=== PATIENT | male | born 1995 | race Caucasian/White ===

== ENCOUNTER 2016-10-18 17:42 | Emergency (ER) | payer OTHER, SELFPAY ==
[2016-10-18] MEDS ORDERED: Lopressor 25MG Tab PO ONE (17:53)
[2016-10-18] MEDS ORDERED: Lopressor 25MG Tab ONE (17:59)
[2016-10-18] MEDS ORDERED: Sodium Chloride 0.9% 1000 ML 1,000 ML ONE (17:59)
[2016-10-18] MEDS ORDERED: Sodium Chloride 0.9% 1000 ML 1,000 ML IV SCH (18:00)
--- NOTE | 2016-10-18 18:00 | ERPHSYRPT ---
- History of Present Illness Time Seen by Provider: 10/18/16 17:50 Historian: patient Exam Limitations: no limitations Patient Subjective Stated Complaint: heart palpitations Triage Nursing Assessment: crystal meth yesterday. went [place] last [place] and just left [place] again. walked out ama both times. states feels like his heart is beating out of his chest. c/o nonradiating chest pain. slight sob. denies n/ v. skin warm and dry. Physician History: patient presents with CP and palpatations secondary to crystal meth IV yesterday ; he has been seen at [facility] ED for this and signed out AMA ; was given ativan and helps until wears off; not suicidal; no ETOH or other drugs. no other complaints or illnesses Timing/Duration: today, yesterday (onset), intermittent, sudden Activities at Onset: other (iv Drugs) Quality: sharpness Location: substernal Chest Pain Radiation: no radiation Severity of Pain-Max: moderate (5) Severity of Pain-Current: moderate (5) Modifying Factors: Improves With: other (IV Drugs) Associated Symptoms: palpitations Prior Chest Pain/Cardiac Workup: recently seen/treated ([facility] ED for palpatations left ama) Nitro Today/Relief: no nitro taken today Aspirin Treatment Today: no aspirin today Allergies/Adverse Reactions: Penicillins Allergy (Intermediate, Verified 10/18/16 17:53) Rash Home Medications: No Home Meds 1 [facility] UD 10/18/16 [History] Hx Tetanus, Diphtheria Vaccination/Date Given: Yes Hx Influenza Vaccination/Date Given: No Hx Pneumococcal Vaccination/Date Given: No Immunizations Up to Date: Yes - Review of Systems Constitutional: Weight Loss, No Fever, No Night Sweats Eyes: No Symptoms Ears, Nose, & Throat: No Symptoms Respiratory: No Cough, No Dyspnea, No Wheezing Cardiac: Chest Pain, Palpitations, No Edema, No Syncope, No Orthopnea Abdominal/Gastrointestinal: No Abdominal Pain, No Nausea, No Vomiting, No Diarrhea Genitourinary Symptoms: No Symptoms Musculoskeletal: No Symptoms Skin: No Symptoms Neurological: No Symptoms Psychological: Drug Abuse, Anxiety, Depression, No Alcohol Abuse, No Suicidal Ideations, No Homicidal Ideations Endocrine: No Symptoms Hematologic/Lymphatic: No Symptoms Immunological/Allergic: No Symptoms - Past Medical History Pertinent Past Medical History: Yes Musculoskeletal History: Fractures Other Medical History: FACIAL BONE FRACTURE - Past Surgical History Past Surgical History: No - Social History Smoking Status: Current every day smoker How long have you smoked: 8 Exposure to second hand smoke: Yes Alcohol Use: Socially Drug Use: marijuana, methamphetamines Patient Lives Alone: No Significant Family History: no pertinent family hx - Nursing Vital Signs Temperature: 98.2 F Temperature Source: Oral Pulse Rate: 100 Respiratory Rate: 18 Blood Pressure: 143/97 Pain Intensity: 5 - Physical Exam General Appearance: moderate distress (CP ; palpatations), alert, anxiety, thin Eye Exam: PERRL/EOMI (6mm), eyes nml inspection, other (no nystagmus), No photophobia Ears, Nose, Throat Exam: normal ENT inspection, TMs normal, pharynx normal, dry mucous membranes Neck Exam: normal inspection, non-tender, supple, full range of motion, No meningismus, No carotid bruit, No JVD Respiratory Exam: normal breath sounds, lungs clear, airway intact, No chest tenderness, No respiratory distress, No crackles/rales, No rhonchi, No wheezing , No pleural rub Cardiovascular Exam: regular rate/rhythm, normal heart sounds, normal peripheral pulses, tachycardia (105), capillary refill <2 sec, No murmur, No friction rub Gastrointestinal/Abdomen Exam: soft, normal bowel sounds, No tenderness, No distention, No guarding, No rebound, No organomegaly Rectal Exam: deferred Back Exam: normal inspection, normal range of motion, No CVA tenderness, No vertebral tenderness, No rash Extremity Exam: normal inspection, normal range of motion, No sri's sign, No pedal edema Neurologic Exam: alert, oriented x 3, cooperative, facilities officer II-XII nml as tested, nml cerebellar function, nml station & gait, No normal mood/affect (flat) Skin Exam: normal color, warm, dry, No rash, No petechiae Lymphatic Exam: No adenopathy SpO2 Interpretation: normal SpO2: 98 Oxygen Delivery: Room Air - Course Nursing assessment & vital signs reviewed: Yes EKG Interpreted by Me: RATE (103), Sinus Tach (103), NORMAL AXIS, NORMAL INTERVALS, NORMAL QRS, NORMAL ST-T Rhythm Strip: Rate (105), Sinus Tachycardia (105) - Radiology Exams Chest X-ray Interpretation: Interpreted by me, Negative, No Pneumonia, No Pneumothorax , Nml Alignment, Nml Heart Size, No Infiltrates, Nml Mediastinum Ordered Tests: Active Orders 24 hr Category Date Time Status EKG-ER Only STAT Care 10/18/16 17:53 Active IV Insertion STAT Care 10/18/16 17:53 Active Pulse Oximetry (ED) STAT Care 10/18/16 17:53 Active Re-Check Vital Signs STAT Care 10/18/16 17:53 Completed CHEST 1 VIEW (PORTABLE) Stat Exams 10/18/16 17:53 Taken CBC W DIFF Stat Lab 10/18/16 18:08 Completed CMP Stat Lab 10/18/16 18:08 Completed TROPONIN Q3H Lab 10/18/16 18:08 Completed TROPONIN Q3H Lab 10/18/16 21:00 Ordered TROPONIN Q3H Lab 10/19/16 00:00 Ordered TROPONIN Q3H Lab 10/19/16 03:00 Ordered TROPONIN Q3H Lab 10/19/16 06:00 Ordered Urine Triage Profile Stat Lab 10/18/16 18:44 Completed Medication Summary Generic Name Dose Route Start Last Admin Trade Name Freq PRN Reason Stop Dose Admin Sodium Chloride 1,000 mls @ 100 mls/hr 10/18/16 18:00 10/18/16 18:01 Sodium Chloride 0.9% 1000 Ml IV 11/17/16 17:59 100 mls/hr .Q10H PAR[facility] Administration Discontinued Medications Generic Name Dose Route Start Last Admin Trade Name Freq PRN Reason Stop Dose Admin Sodium Chloride Confirm 10/18/16 17:59 Sodium Chloride 0.9% 1000 Ml Administered 10/18/16 18:00 Dose 1,000 mls @ ud .ROUTE .STK-MED ONE Lorazepam 2 mg 10/18/16 18:27 10/18/16 18:30 Ativan 2 Mg/1 Ml Vial IM 10/18/16 18:28 2 mg STAT ONE Administration Lorazepam Confirm 10/18/16 18:30 Ativan 2 Mg/1 Ml Vial Administered 10/18/16 18:31 Dose 2 mg .ROUTE .STK-MED ONE Metoprolol Tartrate 25 mg 10/18/16 17:53 10/18/16 18:01 Lopressor 25mg Tab PO 10/18/16 17:54 25 mg STAT ONE Administration Metoprolol Tartrate Confirm 10/18/16 17:59 Lopressor 25mg Tab Administered 10/18/16 18:00 Dose 25 mg .ROUTE .STK-MED ONE Lab/Rad Data: Laboratory Result Diagrams 10/18/16 18:08 10/18/16 18:08 Laboratory Results 10/18/16 10/18/16 10/18/16 Range/Units 18:44 18:08 18:08 WBC (4.0-10.5) K/mm3 RBC (4.1-5.6) M/mm3 Hgb (12.5-18.0) gm/dl Hct (42-50) % MCV (78-100) fl MCH (26-32) pg MCHC (32-36) g/dl RDW (11.5-14.0) % Plt Count (150-450) K/mm3 MPV (6-9.5) fl Gran % (36.0-66.0) % Lymphocytes % (24.0-44.0) % Monocytes % (0.0-12.0) % Eosinophils % (0.00-5.0) % Basophils % (0.0-0.4) % Basophils # (0-0.4) Sodium 142 (136-145) mEq/L Potassium 3.5 (3.5-5.1) mEq/L Chloride 104 (98-107) mEq/L Carbon Dioxide 28.4 (21-32) mEq/L Anion Gap 13.3 (5-15) MEQ/L BUN 10 (9-20) mg/dL Creatinine 1.09 (0.55-1.30) mg/dl Estimated GFR > 60 ML/MIN Glucose 83 (70-110) MG/DL Calcium 8.4 L (8.5-10.1) mg/dL Total Bilirubin 0.7 (0.2-1.0) mg/dL AST 16 (15-37) U/L ALT 18 (12-78) U/L Alkaline Phosphatase 62 (46-116) U/L Troponin I < 0.017 (0.000-0.056) ng/ml Serum Total Protein 7.1 (6.4-8.2) gm/dL Albumin 4.3 (3.4-5.0) g/dL Urine Opiates Level NEG. (NEGATIVE) Ur Methadone NEG. (NEGATIVE) Urine Barbiturates NEG. (NEGATIVE) Ur Phencyclidine (PCP) NEG. (NEGATIVE) Urine Amphetamine POS. (NEGATIVE) U Benzodiazepine Level NEG. (NEGATIVE) Urine Cocaine NEG. (NEGATIVE) Urine Marijuana (THC) POS. (NEGATIVE) 10/18/16 Range/Units 18:08 WBC 6.7 (4.0-10.5) K/mm3 RBC 4.74 (4.1-5.6) M/mm3 Hgb 14.5 (12.5-18.0) gm/dl Hct 43.2 (42-50) % MCV 91.1 (78-100) fl MCH 30.6 (26-32) pg MCHC 33.6 (32-36) g/dl RDW 13.4 (11.5-14.0) % Plt Count 241 (150-450) K/mm3 MPV 11.3 H (6-9.5) fl Gran % 49.8 (36.0-66.0) % Lymphocytes % 31.8 (24.0-44.0) % Monocytes % 16.2 H (0.0-12.0) % Eosinophils % 1.7 (0.00-5.0) % Basophils % 0.5 (0.0-0.4) % Basophils # 0.03 (0-0.4) Sodium (136-145) mEq/L Potassium (3.5-5.1) mEq/L Chloride (98-107) mEq/L Carbon Dioxide (21-32) mEq/L Anion Gap (5-15) MEQ/L BUN (9-20) mg/dL Creatinine (0.55-1.30) mg/dl Estimated GFR ML/MIN Glucose (70-110) MG/DL Calcium (8.5-10.1) mg/dL Total Bilirubin (0.2-1.0) mg/dL AST (15-37) U/L ALT (12-78) U/L Alkaline Phosphatase (46-116) U/L Troponin I (0.000-0.056) ng/ml Serum Total Protein (6.4-8.2) gm/dL Albumin (3.4-5.0) g/dL Urine Opiates Level (NEGATIVE) Ur Methadone (NEGATIVE) Urine Barbiturates (NEGATIVE) Ur Phencyclidine (PCP) (NEGATIVE) Urine Amphetamine (NEGATIVE) U Benzodiazepine Level (NEGATIVE) Urine Cocaine (NEGATIVE) Urine Marijuana (THC) (NEGATIVE) - Progress Progress: re-examined (after xr and ekg) Air Movement: good Progress Note: 10/18/16 18:03 IV started, pulse ox and EKG ok; xr and labs pending; will medicate, feed and recheck 10/18/16 18:28 recheck; dad at the bedside; pulse increased and patient on phone and upset; will medicate with ativan and recheck; CXR ok; labs pending; pusle ox good 10/18/16 18:42 recheck and improved VS - pulse 92; CBC and lytes and renal fx ok; bs 83; lover ok 10/18/16 18:59 recheck and resting quietly, no palpatation; tox pos for Amp and THC; Cardiac ok ; instructions given Blood Culture(s) Obtained: No Antibiotics given: No Will see patient in: hospital (observation) Counseled pt/family regarding: diagnosis, need for follow-up, rad results - Departure Time of Disposition: 19:02 Departure Disposition: Home Clinical Impression: Heart palpitations, Drug abuse, amphetamine type, Chest pain at rest Condition: Stable Critical Care Time: Yes Critical Care Time(excluding separately billable procedures): 30-74 minutes Referrals: DOCTOR,NO FAMILY [Primary Care Provider] - Instructions: Arrhythmias Additional Instructions: avoid drugs and stimulants, rest; follow up lmd Follow-up with family doctor as directed. Call for appointment. Return if any problems. If you smoke please stop. Call or follow up with your family doctor for assistance if you need it to stop. Please wear your seatbelt when driving. Have a nice day. Thank you for allowing us to participate in your care today. :o) Dr Randy Wolf
[2016-10-18 18:21] LABS: BASOPHIL % 0.5 % (0.0-0.4); Eosinophil % 1.7 % (0.00-5.0); Granulocytes % 49.8 % (36.0-66.0); Lymphocytes % 31.8 % (24.0-44.0); Mean Cell Volume 91.1 fl (78-100); Mean Corpuscular Hemoglobin 30.6 pg (26-32); Mean Platelet Volume 11.3 fl (6-9.5); Monocytes % 16.2 % (0.0-12.0); Platelet Count 241 K/mm3 (150-450); Red Blood Count 4.74 M/mm3 (4.1-5.6); Red Cell Distribution Width 13.4 % (11.5-14.0); White Blood Count 6.7 K/mm3 (4.0-10.5)
[2016-10-18] MEDS ORDERED: Ativan 2 MG/1 ML VIAL IM ONE (18:27)
[2016-10-18] MEDS ORDERED: Ativan 2 MG/1 ML VIAL ONE (18:30)
[2016-10-18 18:37] LABS: ALBUMIN 4.3 g/dL (3.4-5.0); ALKALINE PHOSPHATASE 62 U/L (46-116); ANION GAP 13.3 MEQ/L (5-15); BILIRUBIN,TOTAL 0.7 mg/dL (0.2-1.0); BLOOD UREA NITROGEN 10 mg/dL (9-20); CHLORIDE 104 mEq/L (98-107); Carbon Dioxide 28.4 mEq/L (21-32); Glucose 83 MG/DL (70-110); Potassium 3.5 mEq/L (3.5-5.1); SGOT/AST 16 U/L (15-37); SGPT/ALT 18 U/L (12-78); SODIUM 142 mEq/L (136-145); Total Protein 7.1 gm/dL (6.4-8.2)
[2016-10-18 18:42] VITALS: O2SAT 98
[2016-10-18 19:04] VITALS: BP 143/97; PULSE 100
--- NOTE | 2016-10-19 08:38 | XRAY ---
Indication: Chest pain and palpitations. Comparison: None Portable chest demonstrates normal heart, lungs, and bony thorax with a few calcified granulomas.
== END 2016-10-18 19:16 | disposition home or self-care (01) ==
LOC: EEVIPCON 17:42 → ED 17:42
DX: R00.2 Palpitations (principal); F19.10 Other psychoactive substance abuse, uncomplicated; R07.89 Other chest pain
CPT/HCPCS: 36000; 36415; 71010; 80053; 80307; 84484; 85025; 93005; 96360; 96372; 99283; J2060

== ENCOUNTER 2016-10-21 17:15 | Emergency (ER) | payer OTHER, SELFPAY ==
[2016-10-21] MEDS ORDERED: Sodium Chloride 0.9% 1000 ML 1,000 ML IV STA (17:56)
[2016-10-21] MEDS ORDERED: Sodium Chloride 0.9% 1000 ML 1,000 ML ONE (17:58)
[2016-10-21 18:03] VITALS: O2SAT 97
[2016-10-21 18:06] LABS: BASOPHIL % 0.3 % (0.0-0.4); Eosinophil % 1.8 % (0.00-5.0); Granulocytes % 41.8 % (36.0-66.0); Lymphocytes % 46.5 % (24.0-44.0); Mean Cell Volume 91.5 fl (78-100); Mean Corpuscular Hemoglobin 30.6 pg (26-32); Mean Platelet Volume 11.7 fl (6-9.5); Monocytes % 9.6 % (0.0-12.0); Platelet Count 273 K/mm3 (150-450); Red Blood Count 5.04 M/mm3 (4.1-5.6); Red Cell Distribution Width 13.7 % (11.5-14.0); White Blood Count 6.6 K/mm3 (4.0-10.5)
[2016-10-21 18:20] LABS: ALBUMIN 4.4 g/dL (3.4-5.0); ALKALINE PHOSPHATASE 60 U/L (46-116); ANION GAP 11.2 MEQ/L (5-15); BILIRUBIN,TOTAL 0.2 mg/dL (0.2-1.0); BLOOD UREA NITROGEN 5 mg/dL (9-20); CHLORIDE 106 mEq/L (98-107); Carbon Dioxide 29.2 mEq/L (21-32); Glucose 78 MG/DL (70-110); Potassium 3.8 mEq/L (3.5-5.1); SGOT/AST 13 U/L (15-37); SGPT/ALT 27 U/L (12-78); SODIUM 143 mEq/L (136-145); Total Protein 7.4 gm/dL (6.4-8.2)
[2016-10-21 18:23] LABS: TROPONIN < 0.017 ng/ml (0.000-0.056)
--- NOTE | 2016-10-21 18:28 | ERPHSYRPT ---
- History of Present Illness Time Seen by Provider: 10/21/16 17:43 Source: patient Patient Subjective Stated Complaint: PT REPORTS LEFT SIDED CHEST PAIN BEGINNING ON MONDAY WHEN PT OVERDOSED ON CRYSTAL METH-STATES HE CAME TO ED FOR TX BUT LEFT BEFORE-STATES THAT PAIN HAS NOT CHANGED-REPORTS INTERMITTANT SOB ET FEELING LIKE HIS HEART IS RACING-PT STATES HE HAS NOT USED SINCE MONDAY Triage Nursing Assessment: PT PINK WARM ET DRY-ANXIOUS UPON ARRIVAL-LUNGS CLEAR ET EQUAL BILATERALLY-NO RETRACTIONS NOTED-RESP EASY ET NONLABORED-RIGHT RADIAL PULSE REGULAR ET STRONG Physician History: CC: palpitations hX: 21 y/o male methamphetamine abuser. He used meth last on Monday 3 days ago. He had bad experience. He felt chest pain and palpitations. Continues to have intermittent palpitations. He is worried his heart will explode. No other drug use. No hx of heart disease. He shoots meth and uses dirty syringes from whomever he can obtain. 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 No suicide ideation. No social support. Lives in his car as family disowned him. He has not used further meth and wants to stop. Severity: moderate (intermittent) Allergies/Adverse Reactions: Penicillins Allergy (Intermediate, Verified 10/21/16 17:24) Rash Home Medications: No Home Meds 1 ea UD 10/18/16 [History] Hx Tetanus, Diphtheria Vaccination/Date Given: Yes Hx Influenza Vaccination/Date Given: No Hx Pneumococcal Vaccination/Date Given: No Immunizations Up to Date: Yes - Review of Systems Constitutional: Malaise, No Fever, No Chills Eyes: No Symptoms Ears, Nose, & Throat: No Symptoms Respiratory: No Cough, No Dyspnea Cardiac: Chest Pain, Palpitations Abdominal/Gastrointestinal: No Abdominal Pain, No Nausea, No Vomiting Skin: No Rash Neurological: No Headache Psychological: Drug Abuse, Emotional Lability All Other Systems: Reviewed and Negative - Past Medical History Pertinent Past Medical History: No Musculoskeletal History: Fractures Other Medical History: FACIAL BONE FRACTURE - Past Surgical History Past Surgical History: No - Social History Smoking Status: Current every day smoker How long have you smoked: 8 Exposure to second hand smoke: Yes Alcohol Use: Socially Drug Use: marijuana, methamphetamines Patient Lives Alone: No Significant Family History: no pertinent family hx - Nursing Vital Signs Nursing Vital Signs: Initial Vital Signs Temperature 98.9 F Temperature Source Oral Pulse Rate [Right Radial] 88 Pulse Rate 82 Respiratory Rate 16 Blood Pressure [Right Arm] 162/76 Pain Intensity 0 - Physical Exam General Appearance: alert Eye Exam: PERRL/EOMI Ears, Nose, Throat Exam: normal ENT inspection, moist mucous membranes Neck Exam: normal inspection, non-tender, supple Respiratory Exam: normal breath sounds, lungs clear Cardiovascular Exam: regular rate/rhythm, No murmur, No friction rub, No gallop Gastrointestinal/Abdomen Exam: soft, No tenderness, No distention Male Genitalia Exam: normal genitalia Back Exam: normal inspection, normal range of motion Extremity Exam: normal inspection, normal range of motion Neurologic Exam: alert, oriented x 3, cooperative, sensation nml, No motor deficits Skin Exam: warm, dry, No rash SpO2 Interpretation: normal SpO2: 97 Oxygen Delivery: Room Air - Course Nursing assessment & vital signs reviewed: Yes EKG Interpreted by Me: RATE (98), Sinus Rhythm, NORMAL AXIS, NORMAL INTERVALS, Non-specific ST Changes Ordered Tests: Active Orders 24 hr Category Date Time Status EKG-ER Only STAT Care 10/21/16 17:56 Active IV Insertion STAT Care 10/21/16 17:56 Active Regular Diet Diet 10/21/16 Dinner Active CBC W DIFF Stat Lab 10/21/16 17:20 Completed CMP Stat Lab 10/21/16 17:20 Completed TROPONIN Stat Lab 10/21/16 17:20 Completed Medication Summary Generic Name Dose Route Start Last Admin Trade Name Freq PRN Reason Stop Dose Admin Sodium Chloride 1,000 mls @ 999 mls/hr 10/21/16 17:56 10/21/16 17:59 Sodium Chloride 0.9% 1000 Ml IV 10/21/16 18:56 999 mls/hr .Q1H1M STA Administration Discontinued Medications Generic Name Dose Route Start Last Admin Trade Name Freq PRN Reason Stop Dose Admin Sodium Chloride Confirm 10/21/16 17:58 Sodium Chloride 0.9% 1000 Ml Administered 10/21/16 17:59 Dose 1,000 mls @ ud .ROUTE .STK-MED ONE Lab/Rad Data: Laboratory Result Diagrams 10/21/16 17:20 10/21/16 17:20 Laboratory Results 10/21/16 10/21/16 Range/Units 17:20 17:20 WBC 6.6 (4.0-10.5) K/mm3 RBC 5.04 (4.1-5.6) M/mm3 Hgb 15.4 (12.5-18.0) gm/dl Hct 46.1 (42-50) % MCV 91.5 (78-100) fl MCH 30.6 (26-32) pg MCHC 33.4 (32-36) g/dl RDW 13.7 (11.5-14.0) % Plt Count 273 (150-450) K/mm3 MPV 11.7 H (6-9.5) fl Gran % 41.8 (36.0-66.0) % Lymphocytes % 46.5 H (24.0-44.0) % Monocytes % 9.6 (0.0-12.0) % Eosinophils % 1.8 (0.00-5.0) % Basophils % 0.3 (0.0-0.4) % Basophils # 0.02 (0-0.4) Sodium 143 (136-145) mEq/L Potassium 3.8 (3.5-5.1) mEq/L Chloride 106 (98-107) mEq/L Carbon Dioxide 29.2 (21-32) mEq/L Anion Gap 11.2 (5-15) MEQ/L BUN 5 L (9-20) mg/dL Creatinine 1.00 (0.55-1.30) mg/dl Estimated GFR > 60 ML/MIN Glucose 78 (70-110) MG/DL Calcium 8.9 (8.5-10.1) mg/dL Total Bilirubin 0.2 (0.2-1.0) mg/dL AST 13 L (15-37) U/L ALT 27 (12-78) U/L Alkaline Phosphatase 60 (46-116) U/L Troponin I < 0.017 (0.000-0.056) ng/ml Serum Total Protein 7.4 (6.4-8.2) gm/dL Albumin 4.4 (3.4-5.0) g/dL - Progress Progress Note: 10/21/16 18:28 Pt high risk for infx disease from dirty needles and requests high risk panel. Discussed treatment at [facility] and information given. Counseled pt/family regarding: lab results, diagnosis, need for follow-up - Departure Time of Disposition: 18:45 Departure Disposition: Home Clinical Impression: Heart palpitations, Drug abuse, amphetamine type Condition: Stable Critical Care Time: No Referrals: DOCTOR,NO FAMILY [Primary Care Provider] - Instructions: Arrhythmias, Methamphetamine. Additional Instructions: Consider [facility]. Follow up next week with a family doctor to get test results. Avoid drug use.
[2016-10-21 18:55] VITALS: BP 131/86; PULSE 77
[2016-10-23 19:41] LABS: Hepatits C Antibody by EIA Non-Reactive (Non-Reactive)
[2016-10-23 20:54] LABS: Hepatitis B Surface Ab.Quant <3.50 mIU/mL (0.00-8.49); Hepatits B Sur Ag Screen Non-Reactive (Non-Reactive)
== END 2016-10-21 18:55 | disposition home or self-care (01) ==
LOC: ED 17:15 → EEVIPCON 17:15 → ED 18:55
DX: R00.2 Palpitations (principal); F15.10 Other stimulant abuse, uncomplicated; R07.89 Other chest pain
CPT/HCPCS: 36000; 80053; 84484; 85025; 86317; 86592; 86701; 86803; 87340; 87389; 93005; 93041; 96360; 99283

== ENCOUNTER 2017-03-01 19:22 | Emergency (ER) | payer OTHER, SELFPAY ==
[2017-03-01] MEDS ORDERED: Sodium Chloride 0.9% 1000 ML 1,000 ML IV STA ×2 (20:48→23:59)
[2017-03-01] MEDS ORDERED: Phenergan 25 MG INJ IV ONE (20:48)
[2017-03-01] MEDS ORDERED: Sodium Chloride 0.9% 1000 ML 1,000 ML ONE ×2 (20:52→22:16)
[2017-03-01] MEDS ORDERED: Phenergan 25 MG INJ ONE (20:52)
[2017-03-01 20:56] LABS: Mean Cell Volume 92.5 fl (78-100); Mean Corpuscular Hemoglobin 30.7 pg (26-32); Mean Platelet Volume 11.6 fl (6-9.5); Platelet Count 245 K/mm3 (150-450); Red Blood Count 4.95 M/mm3 (4.1-5.6); Red Cell Distribution Width 13.7 % (11.5-14.0); White Blood Count 17.9 K/mm3 (4.0-10.5)
[2017-03-01] MEDS ORDERED: TYLENOL 325 MG PO ONE (21:00)
--- NOTE | 2017-03-01 21:00 | ERPHSYRPT ---
- History of Present Illness Time Seen by Provider: 03/01/17 20:43 Source: patient Exam Limitations: no limitations Patient Subjective Stated Complaint: pt has been sicke for a couple of days tonight he has a fever and is weak with a cough productive of green phlegm and he vomits with coughing he has had 20 green diarrhea stools today states the chest pain is achy and radiates to his mid neck Triage Nursing Assessment: pt is awake but drowzy and able to answer questions -laying with his head covered up Physician History: TODAY PT HAS HAD A SUBJECTIVE FEVER, COUGH PRODUCTIVE OF GREEN PHLEGM, NAUSEA, VOMITING X6 WITHOUT BLOOD, LIGHT GREEN DIARRHEA X20 WITHOUT BLOOD, ABDOMINAL PAIN AND FOR THE PAST 12 HOURS DULL ACHY CONSTANT MID CHEST PAIN RADIATING TO THE NECK. Allergies/Adverse Reactions: Penicillins Allergy (Intermediate, Verified 10/21/16 17:24) Rash Home Medications: No Home Meds 1 [facility] UD 10/18/16 [History] Hx Tetanus, Diphtheria Vaccination/Date Given: No Hx Influenza Vaccination/Date Given: No Hx Pneumococcal Vaccination/Date Given: No Immunizations Up to Date: No - Review of Systems Constitutional: Fever Respiratory: Cough Cardiac: Chest Pain Abdominal/Gastrointestinal: Abdominal Pain, Nausea, Vomiting, Diarrhea All Other Systems: Reviewed and Negative - Past Medical History Pertinent Past Medical History: No Musculoskeletal History: Fractures Other Medical History: FACIAL BONE FRACTURE - Past Surgical History Past Surgical History: No - Social History Smoking Status: Current every day smoker How long have you smoked: 8 Exposure to second hand smoke: Yes Alcohol Use: Socially Drug Use: methamphetamines Patient Lives Alone: No Significant Family History: no pertinent family hx - Nursing Vital Signs Nursing Vital Signs: Initial Vital Signs Temperature 101.8 F Temperature Source Oral Pulse Rate 79 Respiratory Rate 16 Blood Pressure [Right Arm] 106/50 Pain Intensity 0 - Physical Exam General Appearance: alert Eye Exam: PERRL/EOMI Ears, Nose, Throat Exam: dry mucous membranes, pharyngeal erythema Neck Exam: normal inspection Respiratory Exam: lungs clear Cardiovascular Exam: normal heart sounds Gastrointestinal/Abdomen Exam: soft, other (B.S. MILDLY HYPERACITVE AND NORMOTONIC), No distention Back Exam: normal range of motion Extremity Exam: normal inspection, No pedal edema Neurologic Exam: alert, cooperative Skin Exam: warm, dry SpO2 Interpretation: normal SpO2: 98 Oxygen Delivery: Room Air Ordered Tests: Active Orders 24 hr Category Date Time Status Clean Catch Urine Specimen STAT Care 03/01/17 20:27 Active EKG-ER Only STAT Care 03/01/17 20:48 Active IV Insertion STAT Care 03/01/17 20:41 Active CHEST 1 VIEW (PORTABLE) Stat Exams 03/01/17 20:48 Taken AMYLASE Stat Lab 03/01/17 20:30 Completed CBC W DIFF Stat Lab 03/01/17 20:30 Completed CMP Stat Lab 03/01/17 20:30 Completed CULTURE, THROAT Stat Lab 03/01/17 21:30 Received D-DIMER QUANTITATION Stat Lab 03/01/17 20:55 Completed ETHOH [Ethyl Alcohol,Urine] Stat Lab 03/01/17 20:30 Completed LIPASE Stat Lab 03/01/17 20:30 Completed MAG [MAGNESIUM] Stat Lab 03/01/17 20:30 Completed Manual Differential NC Stat Lab 03/01/17 20:30 Completed [place] Screen Stat Lab 03/01/17 20:30 Completed STREP SCREEN-BETA A Stat Lab 03/01/17 21:30 Completed TROPONIN Stat Lab 03/01/17 20:30 Completed UA W/RFX UR CULTURE Stat Lab 03/01/17 20:30 Completed Urine Triage Profile Stat Lab 03/01/17 20:30 Completed Medication Summary Generic Name Dose Route Start Last Admin Trade Name Freq PRN Reason Stop Dose Admin Magnesium Sulfate/Dextrose 100 mls @ 100 mls/hr 03/01/17 23:45 Magnesium 1 Gm / 100 Ml D5w IV 03/02/17 01:44 Q1H PARTH Sodium Chloride 1,000 mls @ 999 mls/hr 03/01/17 23:59 03/02/17 00:14 Sodium Chloride 0.9% 1000 Ml IV 03/02/17 00:59 999 mls/hr .Q1H1M STA Administration Discontinued Medications Generic Name Dose Route Start Last Admin Trade Name Freq PRN Reason Stop Dose Admin Acetaminophen 650 mg 03/01/17 21:00 03/01/17 21:21 Tylenol 325 Mg PO 03/01/17 21:01 650 mg STAT ONE Administration Acetaminophen Confirm 03/01/17 21:20 Tylenol 325 Mg Administered 03/01/17 21:21 Dose 650 mg .ROUTE .STK-MED ONE Sodium Chloride 1,000 mls @ 999 mls/hr 03/01/17 20:48 03/01/17 20:56 Sodium Chloride 0.9% 1000 Ml IV 03/01/17 21:48 999 mls/hr .Q1H1M STA Administration Sodium Chloride Confirm 03/01/17 20:52 Sodium Chloride 0.9% 1000 Ml Administered 03/01/17 20:53 Dose 1,000 mls @ ud .ROUTE .STK-MED ONE Sodium Chloride Confirm 03/01/17 22:16 Sodium Chloride 0.9% 1000 Ml Administered 03/01/17 22:17 Dose 1,000 mls @ ud .ROUTE .STK-MED ONE Ceftriaxone Sodium/Dextrose 1 g in 50 mls @ 100 mls/hr 03/01/17 23:47 00:23 Rocephin 1 Gm-D5w 50 Ml Bag IV 03/02/17 00:16 100 mls/hr STAT STA Administration Sodium Chloride Confirm 03/02/17 00:11 Sodium Chloride 0.9% 1000 Ml Administered 03/02/17 00:12 Dose 1,000 mls @ ud .ROUTE .STK-MED ONE Ceftriaxone Sodium/Dextrose Confirm 03/02/17 00:11 Rocephin 1 Gm-D5w 50 Ml Bag Administered 03/02/17 00:12 Dose 1 g in 50 mls @ ud IV .STK-MED ONE Ketorolac Tromethamine 30 mg 03/01/17 23:58 03/02/17 00:16 Toradol 30 Mg Injection IV 03/01/17 23:59 30 mg STAT ONE Administration Ketorolac Tromethamine Confirm 03/02/17 00:10 Toradol 30 Mg Injection Administered 03/02/17 00:11 Dose 30 mg .ROUTE .STK-MED ONE Promethazine HCl 12.5 mg 03/01/17 20:48 03/01/17 20:56 Phenergan 25 Mg Inj IV 03/01/17 20:49 12.5 mg STAT ONE Administration Promethazine HCl Confirm 03/01/17 20:52 Phenergan 25 Mg Inj Administered 03/01/17 20:53 Dose 25 mg .ROUTE .STK-MED ONE Lab/Rad Data: Laboratory Result Diagrams 03/01/17 20:30 03/01/17 20:30 Laboratory Results 03/01/17 03/01/17 03/01/17 Range/Units 21:30 20:55 20:30 WBC (4.0-10.5) K/mm3 RBC (4.1-5.6) M/mm3 Hgb (12.5-18.0) gm/dl Hct (42-50) % MCV (78-100) fl MCH (26-32) pg MCHC (32-36) g/dl RDW (11.5-14.0) % Plt Count (150-450) K/mm3 MPV (6-9.5) fl D-Dimer 0.219 (0.00-0.49) mg/L Sodium (136-145) mEq/L Potassium (3.5-5.1) mEq/L Chloride (98-107) mEq/L Carbon Dioxide (21-32) mEq/L Anion Gap (5-15) MEQ/L BUN (9-20) mg/dL Creatinine (0.55-1.30) mg/dl Estimated GFR ML/MIN Glucose (70-110) MG/DL Calcium (8.5-10.1) mg/dL Magnesium (1.8-2.4) mg/dL Total Bilirubin (0.2-1.0) mg/dL AST (15-37) U/L ALT (12-78) U/L Alkaline Phosphatase (46-116) U/L Troponin I (0.000-0.056) ng/ml Serum Total Protein (6.4-8.2) gm/dL Albumin (3.4-5.0) g/dL Amylase (25-115) U/L Lipase (73-393) U/L Ur Collection Type Urine Color (YELLOW) Urine Appearance (CLEAR) Urine pH (5-6) Ur Specific [place] (1.005-1.025) Urine Protein (Negative) Urine Glucose (UA) (NEGATIVE) mg/dL Urine Ketones (NEGATIVE) Urine Nitrite (NEGATIVE) Urine Bilirubin (NEGATIVE) Urine Urobilinogen (0-1) mg/dL Urine WBC (Auto) (NEGATIVE) Urine RBC (Auto) (0-5) [place]/ul Urine Opiates Level (NEGATIVE) Ur Methadone (NEGATIVE) Urine Barbiturates (NEGATIVE) Ur Phencyclidine (PCP) (NEGATIVE) Urine Amphetamine (NEGATIVE) U Benzodiazepine Level (NEGATIVE) Urine Cocaine (NEGATIVE) Urine Marijuana (THC) (NEGATIVE) Urine Ethyl Alcohol (0.00-20) mg/dl Monoscreen NEGATIVE (Negative) Streptococcus Screen NEGATIVE (Negative) Specimen Received 03/01/17 03/01/17 03/01/17 Range/Units 20:30 20:30 20:30 WBC (4.0-10.5) K/mm3 RBC (4.1-5.6) M/mm3 Hgb (12.5-18.0) gm/dl Hct (42-50) % MCV (78-100) fl MCH (26-32) pg MCHC (32-36) g/dl RDW (11.5-14.0) % Plt Count (150-450) K/mm3 MPV (6-9.5) fl D-Dimer (0.00-0.49) mg/L Sodium (136-145) mEq/L Potassium (3.5-5.1) mEq/L Chloride (98-107) mEq/L Carbon Dioxide (21-32) mEq/L Anion Gap (5-15) MEQ/L BUN (9-20) mg/dL Creatinine (0.55-1.30) mg/dl Estimated GFR ML/MIN Glucose (70-110) MG/DL Calcium (8.5-10.1) mg/dL Magnesium 1.7 L (1.8-2.4) mg/dL Total Bilirubin (0.2-1.0) mg/dL AST (15-37) U/L ALT (12-78) U/L Alkaline Phosphatase (46-116) U/L Troponin I < 0.017 (0.000-0.056) ng/ml Serum Total Protein (6.4-8.2) gm/dL Albumin (3.4-5.0) g/dL Amylase (25-115) U/L Lipase (73-393) U/L Ur Collection Type Urine Color (YELLOW) Urine Appearance (CLEAR) Urine pH 6.5 (5-6) Ur Specific [place] (1.005-1.025) Urine Protein (Negative) Urine Glucose (UA) (NEGATIVE) mg/dL Urine Ketones (NEGATIVE) Urine Nitrite (NEGATIVE) Urine Bilirubin (NEGATIVE) Urine Urobilinogen (0-1) mg/dL Urine WBC (Auto) (NEGATIVE) Urine RBC (Auto) (0-5) [place]/ul Urine Opiates Level (NEGATIVE) Ur Methadone (NEGATIVE) Urine Barbiturates (NEGATIVE) Ur Phencyclidine (PCP) (NEGATIVE) Urine Amphetamine (NEGATIVE) U Benzodiazepine Level (NEGATIVE) Urine Cocaine (NEGATIVE) Urine Marijuana (THC) (NEGATIVE) Urine Ethyl Alcohol 2 (0.00-20) mg/dl Monoscreen (Negative) Streptococcus Screen (Negative) Specimen Received 03/01/17 03/01/17 03/01/17 Range/Units 20:30 20:30 20:30 WBC 17.9 H (4.0-10.5) K/mm3 RBC 4.95 (4.1-5.6) M/mm3 Hgb 15.2 (12.5-18.0) gm/dl Hct 45.8 (42-50) % MCV 92.5 (78-100) fl MCH 30.7 (26-32) pg MCHC 33.2 (32-36) g/dl RDW 13.7 (11.5-14.0) % Plt Count 245 (150-450) K/mm3 MPV 11.6 H (6-9.5) fl D-Dimer (0.00-0.49) mg/L Sodium 141 (136-145) mEq/L Potassium 4.0 (3.5-5.1) mEq/L Chloride 106 (98-107) mEq/L Carbon Dioxide 27.9 (21-32) mEq/L Anion Gap 11.2 (5-15) MEQ/L BUN 13 (9-20) mg/dL Creatinine 1.02 (0.55-1.30) mg/dl Estimated GFR > 60 ML/MIN Glucose 122 H (70-110) MG/DL Calcium 8.6 (8.5-10.1) mg/dL Magnesium (1.8-2.4) mg/dL Total Bilirubin 0.40 (0.2-1.0) mg/dL AST 17 (15-37) U/L ALT 24 (12-78) U/L Alkaline Phosphatase 60 (46-116) U/L Troponin I (0.000-0.056) ng/ml Serum Total Protein 7.3 (6.4-8.2) gm/dL Albumin 4.2 (3.4-5.0) g/dL Amylase 51 (25-115) U/L Lipase 70 L (73-393) U/L Ur Collection Type Urine Color (YELLOW) Urine Appearance (CLEAR) Urine pH (5-6) Ur Specific [place] (1.005-1.025) Urine Protein (Negative) Urine Glucose (UA) (NEGATIVE) mg/dL Urine Ketones (NEGATIVE) Urine Nitrite (NEGATIVE) Urine Bilirubin (NEGATIVE) Urine Urobilinogen (0-1) mg/dL Urine WBC (Auto) (NEGATIVE) Urine RBC (Auto) (0-5) [place]/ul Urine Opiates Level NEG. (NEGATIVE) Ur Methadone NEG. (NEGATIVE) Urine Barbiturates NEG. (NEGATIVE) Ur Phencyclidine (PCP) NEG. (NEGATIVE) Urine Amphetamine NEG. (NEGATIVE) U Benzodiazepine Level NEG. (NEGATIVE) Urine Cocaine NEG. (NEGATIVE) Urine Marijuana (THC) POS. (NEGATIVE) Urine Ethyl Alcohol (0.00-20) mg/dl Monoscreen (Negative) Streptococcus Screen (Negative) Specimen Received 03/01/17 Range/Units 20:30 WBC (4.0-10.5) K/mm3 RBC (4.1-5.6) M/mm3 Hgb (12.5-18.0) gm/dl Hct (42-50) % MCV (78-100) fl MCH (26-32) pg MCHC (32-36) g/dl RDW (11.5-14.0) % Plt Count (150-450) K/mm3 MPV (6-9.5) fl D-Dimer (0.00-0.49) mg/L Sodium (136-145) mEq/L Potassium (3.5-5.1) mEq/L Chloride (98-107) mEq/L Carbon Dioxide (21-32) mEq/L Anion Gap (5-15) MEQ/L BUN (9-20) mg/dL Creatinine (0.55-1.30) mg/dl Estimated GFR ML/MIN Glucose (70-110) MG/DL Calcium (8.5-10.1) mg/dL Magnesium (1.8-2.4) mg/dL Total Bilirubin (0.2-1.0) mg/dL AST (15-37) U/L ALT (12-78) U/L Alkaline Phosphatase (46-116) U/L Troponin I (0.000-0.056) ng/ml Serum Total Protein (6.4-8.2) gm/dL Albumin (3.4-5.0) g/dL Amylase (25-115) U/L Lipase (73-393) U/L Ur Collection Type CLEAN CATCH Urine Color YELLOW (YELLOW) Urine Appearance CLEAR (CLEAR) Urine pH 6.5 (5-6) Ur Specific [place] 1.025 (1.005-1.025) Urine Protein NEGATIVE (Negative) Urine Glucose (UA) NEGATIVE (NEGATIVE) mg/dL Urine Ketones NEGATIVE (NEGATIVE) Urine Nitrite NEGATIVE (NEGATIVE) Urine Bilirubin NEGATIVE (NEGATIVE) Urine Urobilinogen 0.2 (0-1) mg/dL Urine WBC (Auto) NEGATIVE (NEGATIVE) Urine RBC (Auto) NEGATIVE (0-5) [place]/ul Urine Opiates Level (NEGATIVE) Ur Methadone (NEGATIVE) Urine Barbiturates (NEGATIVE) Ur Phencyclidine (PCP) (NEGATIVE) Urine Amphetamine (NEGATIVE) U Benzodiazepine Level (NEGATIVE) Urine Cocaine (NEGATIVE) Urine Marijuana (THC) (NEGATIVE) Urine Ethyl Alcohol (0.00-20) mg/dl Monoscreen (Negative) Streptococcus Screen (Negative) Specimen Received [id number] - Departure Time of Disposition: 00:48 Departure Disposition: Home Clinical Impression: PHARYNGITIS, VOMITING, CHEST PAIN, DIARRHEA, HYPOMAGNESEMIA Condition: Fair Critical Care Time: No Instructions: Vomiting -- Adult, Pharyngitis/Tonsillopharyngitis -- Adult, Diarrhea and Traveler's Diarrhea -- Adult Additional Instructions: FOLLOW UP WITH PRIVATE DOCTOR TOMORROW. Prescriptions: Promethazine HCl 25 mg [Phenergan 25 mg] 25 mg PO Q4H PRN PRN #14 tablet PRN Reason: Nausea/Vomiting Naproxen 500 mg PO Q12H PRN PRN #20 tablet. PRN Reason: Pain Cephalexin Monohydrate [Keflex] 500 mg PO TID #30 capsule
[2017-03-01 21:18] LABS: ADD URINE CULTURE? NO (NO); COMPLETE URINE MICROSCOPIC? NO; Collection Type CLEAN CATCH; Ph 6.5 (5-6)
[2017-03-01] MEDS ORDERED: TYLENOL 325 MG ONE (21:20)
[2017-03-01 21:21] LABS: ALBUMIN 4.2 g/dL (3.4-5.0); ALKALINE PHOSPHATASE 60 U/L (46-116); ANION GAP 11.2 MEQ/L (5-15); BLOOD UREA NITROGEN 13 mg/dL (9-20); CHLORIDE 106 mEq/L (98-107); Carbon Dioxide 27.9 mEq/L (21-32); Glucose 122 MG/DL (70-110); LIPASE 70 U/L (73-393); SGOT/AST 17 U/L (15-37); SGPT/ALT 24 U/L (12-78); SODIUM 141 mEq/L (136-145); Total Protein 7.3 gm/dL (6.4-8.2)
[2017-03-01] MEDS ORDERED: ROCEPHIN 1 Gm-D5w 50 ml Bag** 1 G/50 ML IVPB IV STA (23:47)
[2017-03-01] MEDS ORDERED: TORAdol 30 mg Injection IV ONE (23:58)
[2017-03-02] MEDS ORDERED: TORAdol 30 mg Injection ONE (00:10)
[2017-03-02] MEDS ORDERED: Magnesium 1 Gm / 100 Ml D5W*** 200 ML IV ONE (00:10)
[2017-03-02] MEDS ORDERED: ROCEPHIN 1 Gm-D5w 50 ml Bag** 1 G/50 ML IVPB IV ONE (00:11)
[2017-03-02] MEDS ORDERED: Sodium Chloride 0.9% 1000 ML 1,000 ML ONE (00:11)
[2017-03-02] MEDS ORDERED: Sodium Chloride 0.9% 1000 ML 1,000 ML IV SCH (01:00)
[2017-03-02] MEDS: Magnesium 1 Gm / 100 Ml D5W*** 100 ML IV SCH ×2 (01:01→01:39)
[2017-03-02 01:11] LABS: Platelet Estimate NORMAL (NORMAL); Total Cells Counted 100
[2017-03-02 02:18] VITALS: BP 130/55; PULSE 81; O2SAT 96
--- NOTE | 2017-03-02 19:46 | XRAY ---
Exam: AP portable chest film from 03/01/2017. Comparison: AP portable chest film from 10/18/2016. Indication: Cough. Findings: The inferior tips of the lateral costophrenic angles have been barely cut off from the inferior margin of the film. However, almost all of the lung cruz has been included. The heart size is normal. The krish and mediastinal structures appear unremarkable. There is a small calcified granuloma within the peripheral left midlung field representing no change. The patient is rotated slightly toward the right. No air space infiltrates, vascular congestion, pneumothorax, or definite pleural fluid is seen. The bones appear intact. Impression: 1. No air space infiltrates to suggest focal pneumonia or other acute cardiopulmonary disease is seen.
== END 2017-03-02 02:23 | disposition home or self-care (01) ==
LOC: ED 19:22
DX: J02.9 Acute pharyngitis, unspecified (principal); R11.10 Vomiting, unspecified; R07.9 Chest pain, unspecified; R19.7 Diarrhea, unspecified; E83.42 Hypomagnesemia; R50.9 Fever, unspecified; R05 Cough; R10.9 Unspecified abdominal pain
CPT/HCPCS: 36000; 36415; 71010; 80053; 80307; 80320; 81002; 82150; 83690; 83735; 83986; 84484; 85025; 85379; 86308; 87070; 87430; 93005; 96374; 96375; 99284; J0696; J1885; J2550; J3475; A9270-GY

== ENCOUNTER 2017-03-03 08:27 | Emergency (ER) | payer SELFPAY ==
[2017-03-03 08:41] VITALS: BP 141/88; PULSE 77; O2SAT 99
--- NOTE | 2017-03-03 09:06 | ERPHSYRPT ---
- History of Present Illness Time Seen by Provider: 03/03/17 08:41 Source: patient Patient Subjective Stated Complaint: Pt states he thinks he has black mold poisoning. Has been vomiting, coughing, had diarrhea, and chills for the last 4 days. States he is vomiting up black/brown/green "stuff". He was seen in this ER for the same thing 1-2 nights ago and diagnosed with food poisoning. Triage Nursing Assessment: Pt alert and oriented x3. skin pink warm and dry. afebrile. abdomen soft and tender with palpation. bowel sounds present x4 Physician History: Patient was in the room with complaint of vomiting. He was here last night and had lab workup. Patient was in room with family member. Nurse started IV. When physician came into room and asked patient's family to turn off the phone so we could speak to the patient the family member and the person on the phone were cursing and agitated and the patient left AMA without further history or examination. EDYTA Salvador in room with physician. Allergies/Adverse Reactions: Penicillins Allergy (Intermediate, Verified 10/21/16 17:24) Rash Home Medications: No Reportable Medications [No Reported Medications] 03/03/17 [History] Hx Tetanus, Diphtheria Vaccination/Date Given: Yes (1 month ago) Hx Influenza Vaccination/Date Given: No Hx Pneumococcal Vaccination/Date Given: No - Past Medical History Pertinent Past Medical History: No Musculoskeletal History: Fractures Other Medical History: FACIAL BONE FRACTURE - Past Surgical History Past Surgical History: No - Social History Smoking Status: Current every day smoker How long have you smoked: 8 Exposure to second hand smoke: Yes Alcohol Use: Socially Drug Use: marijuana Patient Lives Alone: No Significant Family History: no pertinent family hx - Nursing Vital Signs Nursing Vital Signs: Initial Vital Signs Temperature 98.3 F Temperature Source Oral Pulse Rate 77 Respiratory Rate 16 Blood Pressure [Right Arm] 141/88 Pain Intensity 8 - Physical Exam SpO2: 99 Oxygen Delivery: Room Air Ordered Tests: Active Orders 24 hr Category Date Time Status IV Insertion STAT Care 03/03/17 09:03 Active - Departure Time of Disposition: 09:05 Departure Disposition: AMA Clinical Impression: Left against medical advice Condition: Stable Critical Care Time: No
== END 2017-03-03 09:05 | disposition left against medical advice (07) ==
LOC: ED 08:27
DX: R11.10 Vomiting, unspecified (principal)
CPT/HCPCS: 36000; 99283